=== PATIENT | female | born 1955 | race Hispanic/Latino ===

== ENCOUNTER 2021-10-06 09:16 | Emergency (ER) | payer OTHER ==
[2021-10-06] MEDS ORDERED: Acetaminophen 500 MG TAB ONE (09:35)
[2021-10-06 09:51] LABS: #Monocytes 0.6 10x3/uL (0.0-1.1); #Neutrophils 7.5 10x3/uL (1.5-8.4); %Basophils 0.2 % (0.0-2.0); %Neutrophils 83.6 % (40.0-75.0); Hemoglobin 14.3 g/dL (12.0-15.5); Mean Corpuscular HGB CONC 34.5 g/dL (32.0-36.0); Mean Corpuscular Volume 92.6 fl (81.6-98.3); Mean Platelet Volume 9.9 fl (7.4-10.4); Platelet Count 229 10x3/uL (150-450); RBC Distribution Width 12.3 % (11.5-14.5); Red Blood Cell (RBC) Count 4.47 10x6/uL (3.90-5.03)
[2021-10-06 10:10] LABS: ALT (SGPT) 19 U/L (8-55); AST (SGOT) 18 U/L (5-34); Albumin 4.4 g/dL (3.4-4.8); Alkaline Phosphatase 86 U/L (40-110); Anion Gap 17 mmol/L (10-20); BUN (Urea Nitrogen) 8 mg/dL (9.8-20.1); Bilirubin, Total 0.6 mg/dL (0.2-1.2); Calc. Creatinine Clearance 0 mL/min (70-130); Calcium 8.9 mg/dL (7.8-10.44); Carbon Dioxide 21 mmol/L (23-31); Chloride 106 mmol/L (98-107); Globulin 2.7 g/dL (2.4-3.5); Glucose 129 mg/dL (80-115); Potassium 3.7 mmol/L (3.5-5.1); Protein, Total 7.1 g/dL (5.8-8.1); Sodium 140 mmol/L (136-145)
[2021-10-06] MEDS ORDERED: Ventolin HFA Inhaler 60 PUFF INHALER ONE (10:18)
[2021-10-06] MEDS ORDERED: Dexamethasone 10 MG/ML VIAL ONE (11:08)
[2021-10-06 12:16] LABS: SARS-CoV-2 NAA Rapid Test Not Detected (NotDetected)
== END 2021-10-06 12:50 | disposition home or self-care (01) ==
LOC: CSHERS 09:16
DX: J11.00 Influenza due to unidentified influenza virus with unspecified type of pneumonia (principal); J45.901 Unspecified asthma with (acute) exacerbation; R07.89 Other chest pain; Z20.822 Contact with and (suspected) exposure to COVID-19
CPT/HCPCS: 0240U; 71045; 71275; 80053; 84484; 85025; 85379; 93005; 94664; J1100

== ENCOUNTER 2021-12-28 18:35 | Inpatient (IN) | payer SELFPAY ==
[2021-12-28 19:25] LABS: #Eosinphils 0.1 10x3/uL (0.0-0.5); #Monocytes 1.3 10x3/uL (0.0-1.1); #Neutrophils 8.7 10x3/uL (1.5-8.4); %Basophils 0.2 % (0.0-2.0); %Eosinophils 0.5 % (0.0-6.0); %Lymphocytes 24.2 % (18.0-47.0); %Monocytes 9.7 % (0.0-10.0); Hemoglobin 12.4 g/dL (12.0-15.5); Mean Corpuscular HGB CONC 33.2 g/dL (32.0-36.0); Mean Corpuscular Hemoglobin 31.6 pg (27.0-33.0); Mean Corpuscular Volume 95.2 fl (81.6-98.3); Mean Platelet Volume 10.1 fl (7.4-10.4); Platelet Count 271 10x3/uL (150-450); RBC Distribution Width 11.8 % (11.5-14.5); Red Blood Cell (RBC) Count 3.93 10x6/uL (3.90-5.03); White Blood Cell (WBC) Count 13.3 10x3/uL (3.5-10.5)
[2021-12-28] MEDS ORDERED: Ketorolac Tromethamine 30 MG/ML VIAL ONE (19:26)
[2021-12-28 19:42] LABS: ALT (SGPT) 16 U/L (8-55); AST (SGOT) 13 U/L (5-34); Albumin 3.8 g/dL (3.4-4.8); Alkaline Phosphatase 88 U/L (40-110); Anion Gap 13 mmol/L (10-20); BUN (Urea Nitrogen) 12 mg/dL (9.8-20.1); Bilirubin, Total 0.6 mg/dL (0.2-1.2); CK (CPK) 60 U/L (29-168); Calc. Creatinine Clearance 0 mL/min (70-130); Calcium 8.5 mg/dL (7.8-10.44); Carbon Dioxide 24 mmol/L (23-31); Chloride 105 mmol/L (98-107); Globulin 2.7 g/dL (2.4-3.5); Glucose 102 mg/dL (80-115); Magnesium 2.1 mg/dL (1.6-2.6); Potassium 3.7 mmol/L (3.5-5.1); Protein, Total 6.5 g/dL (5.8-8.1); Sodium 138 mmol/L (136-145)
[2021-12-28] MEDS ORDERED: Ventolin HFA Inhaler 60 PUFF INHALER ONE (19:43)
[2021-12-28] MEDS ORDERED: cefTRIAXone\\ROCEPHIN 2 GM VIAL ONE (19:59)
[2021-12-28] MEDS ORDERED: Azithromycin 500 MG VIAL ONE (20:00)
[2021-12-28 21:00] LABS: Bilirubin Neg (Negative); Blood, Urine Negative (Negative); Clarity Clear (Clear); Glucose, Urine (Dipstick) Normal (Negative); Ketone, Urine Negative (Negative); Leukocyte Negative (Negative); Nitrite Negative (Negative); Protein, Urine (Dipstick) Negative (Neg-Trace); Urobilinogen Normal mg/dL (Less than 2)
[2021-12-28 21:15] LABS: SARS-CoV-2 NAA Rapid Test DETECTED (NotDetected)
[2021-12-28 23:33] VITALS: BMI 31.8
[2021-12-29] MEDS ORDERED: Acetaminophen 325 MG TAB PO PRN (00:12)
[2021-12-29] MEDS ORDERED: Senokot S 8.6-50 MG TAB PO PRN (00:12)
[2021-12-29] MEDS ORDERED: Calcium Carbonate 500 MG ChewTAB PO PRN (00:12)
[2021-12-29] MEDS ORDERED: Ondansetron PF 4 MG/2 ML Vial IVP PRN (00:12)
[2021-12-29] MEDS ORDERED: Ondansetron ODT 4 MG TAB PO PRN (00:12)
[2021-12-29] MEDS ORDERED: HumaLOG 300 UNITS/3 ML VIAL SC PRN (00:20)
[2021-12-29] MEDS ORDERED: Dextrose 5% in Water 1,000 ML IV PRN (00:20)
[2021-12-29] MEDS ORDERED: Dextrose 50% Abboject 50 ML SYRINGE SLOW IVP PRN (00:20)
[2021-12-29] MEDS ORDERED: Aspirin 81 mg Enteric Coated Tablet PO SCH (00:30)
[2021-12-29] MEDS ORDERED: Ascorbic Acid 500 mg Chewable Tablet PO SCH (00:30)
[2021-12-29] MEDS ORDERED: Ventolin HFA Inhaler 60 PUFF INHALER INH PRN (00:38)
[2021-12-29] MEDS ORDERED: Cholecalciferol 1,000 UNITS (25 MCG) TAB PO SCH (00:45)
[2021-12-29] MEDS ORDERED: Zinc Sulfate 220 MG CAP PO SCH (00:45)
[2021-12-29] MEDS: Dexamethasone 4 mg/ml Vial SLOW IVP SCH (01:27)
[2021-12-29 03:59] LABS: #Eosinphils 0.1 10x3/uL (0.0-0.5); #Monocytes 0.6 10x3/uL (0.0-1.1); #Neutrophils 9.6 10x3/uL (1.5-8.4); %Basophils 0.3 % (0.0-2.0); %Eosinophils 0.4 % (0.0-6.0); %Monocytes 5.1 % (0.0-10.0); %Neutrophils 82.8 % (40.0-75.0); Hemoglobin 12.3 g/dL (12.0-15.5); Mean Corpuscular HGB CONC 32.4 g/dL (32.0-36.0); Mean Corpuscular Hemoglobin 31.3 pg (27.0-33.0); Mean Corpuscular Volume 96.7 fl (81.6-98.3); Mean Platelet Volume 10.2 fl (7.4-10.4); Platelet Count 274 10x3/uL (150-450); RBC Distribution Width 11.9 % (11.5-14.5); Red Blood Cell (RBC) Count 3.93 10x6/uL (3.90-5.03); White Blood Cell (WBC) Count 11.6 10x3/uL (3.5-10.5)
[2021-12-29 04:27] LABS: Anion Gap 13 mmol/L (10-20); BUN (Urea Nitrogen) 9 mg/dL (9.8-20.1); CRP (Inflammatory) 15.34 mg/dL (= or < 0.5); Calc. Creatinine Clearance 105 mL/min (70-130); Calcium 8.7 mg/dL (7.8-10.44); Carbon Dioxide 23 mmol/L (23-31); Chloride 108 mmol/L (98-107); Glucose 124 mg/dL (80-115); Magnesium 2.1 mg/dL (1.6-2.6); Potassium 3.8 mmol/L (3.5-5.1); Sodium 140 mmol/L (136-145)
[2021-12-29] MEDS ORDERED: Mometasone 100 MCG/Formoterol 5 MCG 120 PUFF INHALER INH SCH (06:30)
[2021-12-29] MEDS: Mometasone/Formoterol 60 PUFF AER INH SCH ×2 (08:11→19:24)
[2021-12-29] MEDS: Ascorbic Acid 500 mg Chewable Tablet PO SCH (08:26)
[2021-12-29] MEDS: metFORMIN 500 MG TAB PO SCH (08:26)
[2021-12-29] MEDS: Cholecalciferol 1,000 UNITS (25 MCG) TAB PO SCH (08:27)
[2021-12-29] MEDS: Aspirin 81 mg Enteric Coated Tablet PO SCH (08:28)
[2021-12-29] MEDS: Zinc Sulfate 220 MG CAP PO SCH (08:28)
[2021-12-29] MEDS: Enoxaparin Sodium 40 MG/0.4 ML SYRINGE SC SCH (08:33)
[2021-12-30] MEDS: Dexamethasone 4 mg/ml Vial SLOW IVP SCH (01:35)
[2021-12-30] MEDS: Mometasone/Formoterol 60 PUFF AER INH SCH (07:28)
[2021-12-30] MEDS: Zinc Sulfate 220 MG CAP PO SCH (08:14)
[2021-12-30] MEDS: metFORMIN 500 MG TAB PO SCH (08:14)
[2021-12-30] MEDS: Enoxaparin Sodium 40 MG/0.4 ML SYRINGE SC SCH (08:14)
[2021-12-30] MEDS: Aspirin 81 mg Enteric Coated Tablet PO SCH (08:15)
[2021-12-30] MEDS: Ascorbic Acid 500 mg Chewable Tablet PO SCH (08:15)
[2021-12-30] MEDS: Cholecalciferol 1,000 UNITS (25 MCG) TAB PO SCH (08:15)
[2021-12-30 12:41] VITALS: BP 100/53; TEMP 98.2
== END 2021-12-30 15:35 | disposition home or self-care (01) | DRG 871 ==
LOC: CSHERS 18:35 → CSHTELE 22:43
PROVIDERS: ADMIT Family Medicine; ATTEND Internal Medicine
PROC: 8E0ZXY6 Isolation (ICD-10-PCS; 2021-12-28)
PROC: 3E0333Z Introduction of Anti-inflammatory into Peripheral Vein, Percutaneous Approach (ICD-10-PCS; principal; 2021-12-29)
DX: A41.89 Other specified sepsis (principal); U07.1 COVID-19; J12.82 Pneumonia due to coronavirus disease 2019; E11.9 Type 2 diabetes mellitus without complications; J45.20 Mild intermittent asthma, uncomplicated; Z79.84 Long term (current) use of oral hypoglycemic drugs
CPT/HCPCS: 36415; 36416; 71045; 80048; 80053; 81003; 82550; 83605; 83735; 84145; 84484; 85025; 86140; 87040; 90471; 90732; 93005; 93010; 94664; 94760; 96365; 96367; 96375; G0009; J0456; J0696; J1100; J1650; J1885; U0002

== ENCOUNTER 2023-01-09 15:14 | Inpatient (IN) | payer SELFPAY ==
[~2023-01-09 15:14] MED LIST: Iopamidol 370 76% 100 ML VIAL ONE
[2023-01-09] MEDS ORDERED: Acetaminophen 500 MG TAB ONE (15:45)
[2023-01-09] MEDS ORDERED: methylPREDNISolone Sod Succ/PF 125 MG/2 ML VIAL ONE (15:45)
[2023-01-09] MEDS ORDERED: Ipratropium/Albuterol 3 ML NEB ONE (15:57)
[2023-01-09 16:04] LABS: #Neutrophils 8.6 10x3/uL (1.5-8.4); %Basophils 0.3 % (0.0-2.0); %Eosinophils 0.3 % (0.0-6.0); %Lymphocytes 14.2 % (18.0-47.0); %Monocytes 8.8 % (0.0-10.0); %Neutrophils 76.1 % (40.0-75.0); Hemoglobin 13.5 g/dL (12.0-15.5); Mean Corpuscular HGB CONC 34.3 g/dL (32.0-36.0); Mean Corpuscular Hemoglobin 31.6 pg (27.0-33.0); Mean Corpuscular Volume 92.3 fl (81.6-98.3); Platelet Count 271 10x3/uL (150-450); RBC Distribution Width 11.8 % (11.5-14.5); Red Blood Cell (RBC) Count 4.27 10x6/uL (3.90-5.03); White Blood Cell (WBC) Count 11.3 10x3/uL (3.5-10.5)
[2023-01-09] MEDS ORDERED: cefTRIAXone\\ROCEPHIN 1 GM VIAL ONE (16:10)
[2023-01-09] MEDS ORDERED: Azithromycin 500 MG VIAL ONE (16:11)
[2023-01-09 16:13] LABS: ALT (SGPT) 15 U/L (8-55); AST (SGOT) 15 U/L (5-34); Albumin 4.1 g/dL (3.4-4.8); Alkaline Phosphatase 79 U/L (40-110); Anion Gap 16 mmol/L (10-20); BUN (Urea Nitrogen) 12 mg/dL (9.8-20.1); Bilirubin, Total 0.5 mg/dL (0.2-1.2); Calc. Creatinine Clearance 0 mL/min (70-130); Carbon Dioxide 21 mmol/L (23-31); Chloride 106 mmol/L (98-107); Estimated GFR 93; Globulin 2.9 g/dL (2.4-3.5); Glucose 131 mg/dL (80-115); Potassium 4.1 mmol/L (3.5-5.1); Sodium 139 mmol/L (136-145)
[2023-01-09 16:43] LABS: SARS-CoV-2 NAA Rapid Test Not Detected (NotDetected)
[2023-01-09] MEDS ORDERED: Ibuprofen 200 MG TAB ONE (17:06)
[2023-01-09 17:53] LABS: Bilirubin Neg (Negative); Blood, Urine Negative (Negative); Clarity Clear (Clear); Glucose, Urine (Dipstick) Normal (Negative); Ketone, Urine Negative (Negative); Leukocyte Negative (Negative); Nitrite Negative (Negative); Protein, Urine (Dipstick) Negative (Neg-Trace); Urobilinogen Normal mg/dL (Less than 2)
[2023-01-09] MEDS ORDERED: Ondansetron ODT 4 MG TAB PO PRN (18:05)
[2023-01-09] MEDS ORDERED: Acetaminophen 325 MG TAB PO PRN (18:05)
[2023-01-09] MEDS ORDERED: Calcium Carbonate 500 MG ChewTAB PO PRN (18:05)
[2023-01-09] MEDS ORDERED: Ondansetron PF 4 MG/2 ML Vial IVP PRN (18:05)
[2023-01-09] MEDS ORDERED: Senokot S 8.6-50 MG TAB PO PRN (18:05)
[2023-01-09] MEDS ORDERED: Dextrose 5% in Water 1,000 ML IV PRN (18:09)
[2023-01-09] MEDS ORDERED: HumaLOG 300 UNITS/3 ML VIAL SC PRN ×2 (18:09)
[2023-01-09] MEDS ORDERED: Dextrose 50% Abboject 50 ML SYRINGE SLOW IVP PRN (18:09)
[2023-01-09] MEDS ORDERED: Sodium Chloride 0.9% 1,000 ML IV SCH (18:15)
[2023-01-09 18:34] LABS: Lactic Acid 2.5 mmol/L (0.5-2.2)
[2023-01-09 19:09] LABS: Legionella Urinary Ag Negative (Negative); Strep pneumo Urine Ag NEGATIVE (NEGATIVE)
[2023-01-09] MEDS: Sodium Chloride 0.9% 1,000 ML IV SCH (20:47)
[2023-01-09] MEDS ORDERED: Famotidine 20 MG TAB PO SCH (21:00)
[2023-01-09 21:53] VITALS: BMI 31.8
[2023-01-09] MEDS: methylPREDNISolone Sod Succ 40 MG VIAL IVP SCH (22:08)
[2023-01-10 05:25] LABS: #Monocytes 0.3 10x3/uL (0.0-1.1); #Neutrophils 9.7 10x3/uL (1.5-8.4); %Basophils 0.2 % (0.0-2.0); %Lymphocytes 9.6 % (18.0-47.0); %Monocytes 2.3 % (0.0-10.0); %Neutrophils 87.6 % (40.0-75.0); Hemoglobin 13.3 g/dL (12.0-15.5); Mean Corpuscular HGB CONC 34.4 g/dL (32.0-36.0); Mean Corpuscular Hemoglobin 32.3 pg (27.0-33.0); Mean Corpuscular Volume 93.9 fl (81.6-98.3); Mean Platelet Volume 9.7 fl (7.4-10.4); Platelet Count 263 10x3/uL (150-450); RBC Distribution Width 11.7 % (11.5-14.5); Red Blood Cell (RBC) Count 4.12 10x6/uL (3.90-5.03); White Blood Cell (WBC) Count 11.1 10x3/uL (3.5-10.5)
[2023-01-10 05:41] LABS: Anion Gap 15 mmol/L (10-20); BUN (Urea Nitrogen) 11 mg/dL (9.8-20.1); Calc. Creatinine Clearance 98 mL/min (70-130); Calcium 9.4 mg/dL (7.8-10.44); Carbon Dioxide 19 mmol/L (23-31); Chloride 112 mmol/L (98-107); Estimated GFR 98; Glucose 149 mg/dL (80-115); Sodium 142 mmol/L (136-145)
[2023-01-10] MEDS: Sodium Chloride 0.9% 1,000 ML IV SCH ×2 (05:56→16:49)
[2023-01-10] MEDS: methylPREDNISolone Sod Succ 40 MG VIAL IVP SCH (08:14)
[2023-01-10] MEDS ORDERED: cefTRIAXone\\ROCEPHIN 1 GM in Sodium Chloride 0.9% 100 ML IVPB SCH (16:00)
[2023-01-10] MEDS ORDERED: cefTRIAXone\\ROCEPHIN 1 GM VIAL ONE (16:17)
[2023-01-10] MEDS ORDERED: Azithromycin 500 MG in Sodium Chloride 0.9% 250 ML 250 ML IVPB SCH (17:00)
[2023-01-10] MEDS: Ipratropium/Albuterol 3 ML NEB NEB PRN (19:06)
[2023-01-10] MEDS ORDERED: metFORMIN 500 MG TAB PO SCH (21:00)
[2023-01-11 05:15] LABS: Hemoglobin 11.5 g/dL (12.0-15.5); MDiff Complete? YES; Mean Corpuscular HGB CONC 34.1 g/dL (32.0-36.0); Mean Corpuscular Hemoglobin 31.9 pg (27.0-33.0); Mean Corpuscular Volume 93.4 fl (81.6-98.3); Mean Platelet Volume 10.3 fl (7.4-10.4); Platelet Count 268 10x3/uL (150-450); RBC Distribution Width 11.9 % (11.5-14.5); Red Blood Cell (RBC) Count 3.61 10x6/uL (3.90-5.03); White Blood Cell (WBC) Count 14.5 10x3/uL (3.5-10.5)
[2023-01-11 05:44] LABS: Anion Gap 15 mmol/L (10-20); BUN (Urea Nitrogen) 11 mg/dL (9.8-20.1); Calc. Creatinine Clearance 104 mL/min (70-130); Calcium 8.7 mg/dL (7.8-10.44); Carbon Dioxide 19 mmol/L (23-31); Chloride 113 mmol/L (98-107); Estimated GFR 99; Glucose 92 mg/dL (80-115); Potassium 3.4 mmol/L (3.5-5.1); Sodium 144 mmol/L (136-145)
[2023-01-11 05:45] LABS: Lymphocytes 17 % (21-51); Monocytes 5 % (0-10); Neutrophil 76 % (42-75); Reactive Lymphocytes 2 % (0-10)
[2023-01-11 05:46] LABS: Platelet Morphology Comment Appears Adequate
[2023-01-11] MEDS: Ipratropium/Albuterol 3 ML NEB NEB PRN (07:30)
[2023-01-11 08:33] VITALS: BP 119/58; TEMP 97.6
== END 2023-01-11 11:21 | disposition home or self-care (01) | DRG 871 ==
LOC: CSHERS 15:14 → CSHERHOLD 18:49 → CSHTELE 21:40
PROVIDERS: ADMIT Internal Medicine; ATTEND Hospitalist
PROC: 8E0ZXY6 Isolation (ICD-10-PCS; principal; 2023-01-09)
PROC: 3E03329 Introduction of Other Anti-infective into Peripheral Vein, Percutaneous Approach (ICD-10-PCS; 2023-01-09)
DX: A41.9 Sepsis, unspecified organism (principal); J18.9 Pneumonia, unspecified organism; E11.9 Type 2 diabetes mellitus without complications; J45.20 Mild intermittent asthma, uncomplicated; R91.8 Other nonspecific abnormal finding of lung field; Z20.822 Contact with and (suspected) exposure to COVID-19; Z91.14 Patient's other noncompliance with medication regimen; Z79.51 Long term (current) use of inhaled steroids; Z86.16 Personal history of COVID-19; Z79.84 Long term (current) use of oral hypoglycemic drugs; Z98.890 Other specified postprocedural states; Z87.440 Personal history of urinary (tract) infections; Z80.8 Family history of malignant neoplasm of other organs or systems
CPT/HCPCS: 36415; 36416; 71045; 71275; 80048; 80053; 81003; 83605; 84484; 85025; 85379; 87040; 87449; 87899; 93005; 94640; 94760; 96365; 96366; 96367; 96375; J0456; J0696; J1650; J1815; J2920; J2930; J3490; J7050; J7620; Q9967